=== PATIENT | male | born 1955 | race American Indian/Alaskan Native ===

== ENCOUNTER 2024-09-21 12:28 | Outpatient (CLI) | payer MEDICARE, SELFPAY ==
--- NOTE | ~2024-09-21 | XR_ITS ---
Clinical Indication: Smoking PA and lateral views of the chest: Comparison: None Findings: The lungs are clear, without evidence of focal consolidation or pleural effusion. Cardiome diastinal silhouette is within normal limits. Bones are intact. Large hiatal hernia present. Impression: Clear lungs. Extremely large hiatal hernia. Reviewed, dictated and finalized at location . Impression: Clear lungs. Extremely large hiatal hernia.
--- OUTSIDE RECORDS SUMMARY | 2024-09-21 12:34 | XMS_ITS | Clinical Summary ---
Author Organization [facility] Alana proctor [facility] Address [address] [place] [address] Care Team Providers Care Special Events Planner Name Role Phone Steve Bernard MD Primary Care Provider [phone] Allergies No known active allergies Medications amoxicillin (AMOXIL) 500 mg Tablet Take 1 Tablet by mouth 3 times daily. 06/05/2023 Active amLODIPine (NORVASC) 10 mg tablet Take 10 mg by mouth daily. 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 Family History Medical History Relation Name Comments No Known Problems Brother No Known Problems Child 1 No Known Problems Child 2 No Known Problems Child 3 No Known Problems Child 4 No Known Problems Child 5 Cancer Father No Known Problems Mother No Known Problems Sister 1 No Known Problems Sister 2 No Known Problems Sister 3 Relation Name Status Comments Brother Alive Child 1 Alive Child 2 Alive Child 3 Alive Child 4 Alive Child 5 Alive Father Mother Alive Sister 1 Alive Sister 2 Alive Sister 3 Alive Social History Tobacco Use Types Packs/Day Years Used Date Smoking Tobacco: Every Day Cigarettes 0.5 11.3 Started: 06/19/2013 Alcohol Use Standard Drinks/Week Comments Yes 0 (1 standard drink = 0.6 oz pur e alcohol) socially Sex and Gender Information Value Date Recorded Sex Assigned at Not on file Legal Sex Male 10:02 AM CDT Gender Identity Not on file Sexual Orientation Not on file Last Filed Vital Signs Vital Sign Reading Time Taken Comments Blood Pressure 147/95 06/20/2023 10:15 AM CDT Pulse 112 06/20/2023 10:15 AM CDT Temperature 36.7 C (98 F) 06/20/2023 10:10 AM CDT Respiratory Rate 19 06/20/2023 10:10 AM CDT Oxygen Saturation 95% 06/20/2023 10:10 AM CDT Inhaled Oxygen Concentration - - Weight 91.8 kg (202 lb 6.4 oz) 06/20/2023 10:10 AM CDT Height - - Body Mass Index - - Plan of Treatment Health Maintenance Due Date Last Done Comments DTAP/TDAP/TD VACCINES (1 - Tdap) 09/06/1974 PNEUMOCOCCAL VACCINE 50+ YEARS (1 of 2 - PCV) 09/06/18 75 COLORECTAL SCREENING 09/06/2000 Colorectal Cancer Screening 09/06/2000 FIT-DNA Q 3 years 09/06/2000 FIT/FOBT Q 1 year 09/06/2000 Flex Sig/CT Colonography Q 5 years 09/06/2000 ZOSTER VACCINE (1 of 2) 09/06/2005 INFLUENZA VACCINE (#1) 2024 RSV VACCINE (60+ or ) (1 - 1-dose 75+ series) 09/06/2030 Insurance MCR Care Teams Special Events Planner Relationship Specialty Start Date End Date Steve Bernard MD [address] [place] [phone] PCP - General Family Practice 06/20/23
--- OUTSIDE RECORDS SUMMARY | 2024-09-21 12:34 | XMS_ITS | Continuity of Care Document ---
Author Organization [facility] Address [address] [place] [address] Phone Care Team Providers Care Slope Tender Name Role Phone Unavailable Unavailable Unavailable Procedures Procedure Date Onsite Office Visit Onsite Office Visit Resin-3+ Posterior Limited Oral Evaluation Xlwjbxmbr-Eaqkwrfwhk-4gw Advance Directives Directive Yes / No Effective Date File Name No Information Encounters Encounter Description Practice Location Reason(s) For Visit Diagnoses Date Provider Providers Copied on Encounter [facility], [address], [place], [place], [id number], [place] tel:[phone] [facility] No Information No Information [facility], [address], [place], [place], [address], [place] tel:[phone] [facility] No Information 3 No Information Family History Family Member Type Diagnosis Age At Onset No Information Payers Payer name Insurance type Covered libertarian ID Authoriza tion(s) No Information Social History [...]
--- OUTSIDE RECORDS SUMMARY | 2024-09-21 12:34 | XMS_ITS | Clinical Summary ---
Author Organization [facility] Address [address] [place] [address] Care Team Providers Care Field Cashier Name Role Phone Steve Bernard MD Primary Care Provider [phone] Allergies No known active allergies Medications amLODIPine (NORVASC) 10 MG tablet Take 1 tablet (10 mg total) by mouth daily. Active Social History Tobacco Use Types Packs/Day Years Used Date Smoking Tobacco: Former Cigarettes Smokeless Tobacco: Never Tobacco Cessation:Counseling Given: Not Answered Comments:Quit 2023, smoked about 15 years , 1 PPD Alcohol Use Standard Drinks/Week Comments Yes 0 (1 standard drink = 0.6 oz pure alcohol) used to drink a couple cans of beer daily, but no longer Sex and Gender Information Value Date Recorded Sex Assigned at Male 05/27/2024 5:16 AM CDT Legal Sex Male 7:43 PM CDT Gender Identity Not on file Sexual Orientation Not on file Last Filed Vital Signs Vital Sign Reading Time Taken Comments Blood Pressure 113/78 05/27/2024 9:50 AM CDT Pulse 92 05/27/2024 9:50 AM CDT Temperature 36.2 C (97.2 F) 05/27/2024 9:50 AM CDT Respiratory Rate 16 05/27/2024 9:50 AM CDT Oxygen Saturation 97% 05/27/2024 9:50 AM CDT Inhaled Oxygen Concentration - - Weight 97.8 kg (215 lb 9.8 oz) 05/27/2024 6:10 A M CDT Height 182.9 cm (6') 05/27/2024 6:10 AM CDT Body Mass Index 29.24 05/27/2024 6:10 AM CDT Plan of Treatment Health Maintenance Due Date Last Done Comments Colorectal Cancer Screening Colonoscopy (10 Years) 1955 Hepatitis C 09/06/1973 DTaP, Tdap and Td Vaccines ( 1 - Tdap) 09/06/1974 Pneumococcal Vaccine: 50+ Ye ars (1 of 1 - PCV) 09/06/2005 Zoster Vaccines (1 of 2) 09/06/2005 AAA SCREENING 09/06/2020 Annual Medicare Wellness Visit 09/06/2020 COVID-19 Vaccine (1 - 2023-2 5 season) 2023 RSV Immunization or 60+ Years (1 - 1-dose 75+ series) 09/06/2030 Meningococcal B Vaccine Aged Out No l onger eligible based on patient's age to complete this topic Meningococcal Vaccine Aged Out No nola ye eligible based on patient's age to complete this topic RSV Immunizations Under 20 Months Aged Out No longer eligible based on patient's age to complete this topic Insurance [place] [address] [place] [address] Care Teams Field Cashier Relationship Specialty Start Date End Date Steve Bernard MD [address] [address] PCP - General FAMILY PRACTICE 05/27/24
== END 2024-09-21 12:29 | disposition home or self-care (01) ==
PROVIDERS: PCP Emergency Medicine; Visit Provider Emergency Medicine
DX: K44.9 Diaphragmatic hernia without obstruction or gangrene (principal); Z72.0 Tobacco use; Z13.820 Encounter for screening for osteoporosis
CPT/HCPCS: 71046

== ENCOUNTER 2024-10-05 10:32 | Outpatient (CLI) | payer MEDICARE, MEDICAID, SELFPAY ==
--- NOTE | ~2024-10-05 | DEXA_ITS ---
Bone Density Report Name: JENNY VELARDE Age: 69 Sex: Male Ethnicity: White Date of : 1955 Indication: height loss; Referring Provider: LUKE MOFFETT Study: Bone densitometry was performed. Exam Date: October 05, 2024 Accession number: [id number] Bone Density: Region BMD T-score Z-score Classification AP Spine(L1-L4) 0.949 -1.3 -0.4 Osteopenia Femoral Neck (Left) 0.639 -2.1 -1.0 Osteopenia Total Hip (Left) 0.824 -1.4 -0.8 Osteopenia Femoral Neck (Right) 0.650 -2.1 -0.9 Osteopenia Total Hip (Right) 0.842 -1.3 -0.6 Osteopenia Total Hip Mean 0.833 -1.4 -0.7 Osteopenia World Health Organization criteria for BMD impression classify patients as: Normal (T-score at or above -1.0), Osteopenia (T-score between -1.0 and -2.5), or Osteoporosis (T-score at or below -2.5). 10-year Fracture Risk(1): Major Osteoporotic Fracture 7.9% Hip Fracture 2.0% Reported Risk Factors: [place] (), Neck BMD=0.639, BMI=31.2 (1) FRAX(R) Version 3.08. Fracture probability calculated for an untreated patient. Fracture probability may be lower if the patient has received treatment. Clinical Information Provided by Patient: Patient maximum height was 72.0 Drinks caffeinated beverages Impression: The patient has low bone mass, based on the Left Femoral Neck T-score. The patient has an estimated ten-year risk of hip fracture of 2% and an estimated ten-year risk of major fracture of 7.9%, based on the WHO FRAX algorithm. Discussion: BONE DENSITY IS LOW AT ONE OR MORE SKELETAL SITES. This patient's lowest T-score is low at one or more skeletal sites. It meets the World Health Organization's (WHO) criteria for ?low bone mass? (T-score between -1.0 and -2.5). The patient's 10-year risk of fracture as calculated by FRAX is less than the threshold where pharmacological therapy is recommended by the National Osteoporosis Foundation (NOF). However, all treatment decisions require clinical judgment and consideration of individual patient factors, including patient preferences, comorbidities, previous drug use, risk factors not captured in the FRAX model (e.g., frailty, falls, vitamin D deficiency, increased bone turnover, interval significant decline in bone density) and possible under or overestimation of fracture risk by FRAX. The patient should follow a healthful lifestyle (good nutrition with adequate calcium and vitamin D, and appropriate weight-bearing exercise). Follow-Up: Consider repeating this study in 2 to 3 years to reassess this patient's status, or sooner if there is some new clinical indication. Reported by: ELLIOT on 10/05/2024 11:17:00 AM. Reviewed, dictated and finalized at location A.
--- OUTSIDE RECORDS SUMMARY | 2024-10-05 11:00 | XMS_ITS | Continuity of Care Document ---
Author Name [facility] Organization [facility] Care Team Providers Care Liquor Store Manager Name Role Phone [facility] Unavailable Unavailable Problems Combined list of problems from [facility] facilities. It does not include entries that were removed or entered in error. Problem Status Onset Date Problem Type Date of Resolution Comments Source Anemia * (ICD-9-CM 285.9) Active Condition [facility] Anemia FE Def Active Condition [facility] EMMY [facility] Benign essential hypertension Active Condition [facility] Cataracts Active Condition [facility] Lipoma Active Condition [facility] Other Malaise and Fatigue Active Condition [facility] Unspecified General Medical Examination (ICD-9-CM V70.9) Active Condition [facility] Social History Combined list of available smoking, tobacco, and other social history from [facility] facilities. Social History Type Response Date Comment Sourc e Tobacco smoking status NHIS [place]-TOBACCO USER EVERY DAY 02/04/2018 [facility] of [facility] 30 [facility] WAKEUP 02/04/2018 [facility] History of tobacco use TOB-DECLINES SMOK ING CESSATION REFERRAL 03/18/2006 [facility] Advance Directives List of completed, amended, or rescinded Advance Directives on record at [facility] facilities. An actual copy of the Directive is not included. Date Advance Directive Provider Source 03/22/2006 ADVANCE DIRECTIVE [facility]
--- OUTSIDE RECORDS SUMMARY | 2024-10-05 11:00 | XMS_ITS | Continuity of Care Document ---
Author Organization [facility] Address [address] [place] [address] Phone Care Team Providers Care Ferryboat Operator Helper Name Role Phone Unavailable Unavailable Unavailable Procedures Procedure Date Onsite Office Visit Onsite Office Visit Resin-3+ Posterior Limited Oral Evaluation Mbevkcdxt-Flzuupkqmo-2tf Advance Directives Directive Yes / No Effective Date File Name No Information Encounters Encounter Description Practice Location Reason(s) For Visit Diagnoses Date Provider Providers Copied on Encounter [facility], [address], [place], [place], [id number], [place] tel:[phone] [facility] No Information No Information [facility], [address], [place], [place], [address], [place] tel:[phone] [facility] No Information 3 No Information [...]
--- OUTSIDE RECORDS SUMMARY | 2024-10-05 11:00 | XMS_ITS | Clinical Summary ---
Author Organization [facility] Alana proctor [facility] Address [address] [place] [address] Care Team Providers Care Christian Counselor Name Role Phone Steve Bernard MD Primary Care Provider [phone] Allergies No known active allergies Medications amoxicillin [...] 75+ series) 09/06/2030 Insurance MCR Care Teams Christian Counselor Relationship Specialty Start Date End Date Steve Bernard MD [address] [place] [phone] PCP - General Family Practice 06/20/23
--- OUTSIDE RECORDS SUMMARY | 2024-10-05 11:00 | XMS_ITS | Clinical Summary ---
Author Organization [facility] Address [address] [place] [address] Care Team Providers Care Slater Apprentice Name Role Phone Steve Bernard MD Primary Care Provider [phone] Allergies No known active allergies Medications amLODIPine [...] age to complete this topic Insurance [place] [address] Care Teams Slater Apprentice Relationship Specialty Start Date End Date Steve Bernard MD [address] [address] PCP - General FAMILY PRACTICE 05/27/24
== END 2024-10-05 10:33 | disposition home or self-care (01) ==
PROVIDERS: PCP Emergency Medicine; Visit Provider Emergency Medicine
DX: M85.89 Other specified disorders of bone density and structure, multiple sites (principal); Z13.820 Encounter for screening for osteoporosis; F17.200 Nicotine dependence, unspecified, uncomplicated
CPT/HCPCS: 77080

== ENCOUNTER 2025-01-04 11:50 | Outpatient (CLI) | payer MEDICARE, MEDICAID, SELFPAY ==
--- OUTSIDE RECORDS SUMMARY | 2013-01-06 05:00 | XMS_ITS | Continuity of Care Document ---
Author Organization [facility] Address [address] [place] [address] Phone Care Team Providers Care Varnish Dipper Name Role Phone Unavailable Unavailable Unavailable Procedures Procedure Date Onsite Office Visit Onsite Office Visit Resin-3+ Posterior Limited Oral Evaluation Qmshmbfjk-Khiixlpxnh-2ul Advance Directives Directive Yes / No Effective Date File Name No Information Encounters Encounter Description Practice Location Reason(s) For Visit Diagnoses Date Provider Providers Copied on Encounter [facility], [address], [place], [place], [id number], [place] tel:[phone] [facility] No Information No Information [facility], [address], [place], [place], [id number], [place] tel:[phone] [facility] No Information 3 No Information Family History Family Member Type Diagnosis Age At Onset No Information Payers Payer name Insurance type Covered republican ID Authoriza tion(s) No Information Social History Type Description Quantity Date Captured Comments Sex Male Smoking Status No Information Chief Complaint And Reason For Visit No Information Reason For Referral Reason For Referral No Information History Of Present Illness Encounter Date Complaint History Of Prese nt Illness No Information Functional Status Date Functional Assessmen t No Information Instructions Date Instruction Additional Infor mation No Information Assessments Type Assessment Date No Information Patient Care Teams Name Effective Dates (start - stop) Status Members No Information
--- NOTE | ~2025-01-04 | US_ITS ---
EXAMINATION: US venous doppler [facility] DATE: 01/04/2025 12:59 INDICATION: Lower limb pain and swelling. TECHNIQUE: Grayscale ultrasound images without and with compression and Doppler ultrasound images of the bilateral lower extremity veins were obtained. COMPARISON: None. FINDINGS: The visualized portions of right common femoral vein, profunda (deep) femoral vein, femoral vein, popliteal vein, peroneal veins, posterior tibial veins, and greater saphenous vein outflow are patent. The visualized portions of left common femoral vein, profunda femoral vein, femoral vein, popliteal vein, peroneal veins, posterior tibial veins, and greater saphenous vein outflow are patent. IMPRESSION: 1. No deep venous thrombosis. Reviewed, dictated and finalized at location E.
--- NOTE | ~2025-01-04 | XR_ITS ---
EXAMINATION: XR foot RT min 3V DATE: 01/04/2025 12:41 INDICATION: Right foot pain TECHNIQUE: Dorsoplantar, two oblique and lateral views of the right foot were obtained. COMPARISON: None. FINDINGS: 40 degrees hallux valgus with moderate osteoarthritis at the first metatarsophalangeal joint. Old healed fracture deformity at the neck of the fifth metatarsal which is healed with 3 mm plantar/medial displacement. Bone alignment is otherwise normal. No acute fractures identified. Additional mild to moderate polyarticular osteoarthritis involving multiple tarsometatarsal and interphalangeal joints. There is increased lucency with sharply defined margins projecting over the cephalad aspect of the anterior process of the calcaneus suspicious for a large erosion. Small plantar calcaneal spur. Soft tissue swelling about the ankle. IMPRESSION: 1. Suggestion of a large erosion along the dorsal margin anterior process of the calcaneus of indeterminate etiology or significance. Consider further evaluation with contrast-enhanced either MRI or CT. 2. 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 3. Old healed fracture at the neck of the fifth metatarsal. Reviewed, dictated and finalized at location A. IMPRESSION: 1. Suggestion of a large erosion along the dorsal margin anterior process of th e calcaneus of indeterminate etiology or significance. Consider further evaluat ion with contrast-enhanced either MRI or CT. 2. 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 3. Old healed fracture at the neck of the fifth metatarsal.
--- OUTSIDE RECORDS SUMMARY | 2025-01-04 13:26 | XMS_ITS | Clinical Summary ---
Author Organization [facility] Address [address] [place] [address] Care Team Providers Care Account Assistant Name Role Phone Steve Bernard MD Primary Care Provider [phone] Allergies No known active allergies Medications amLODIPine [...] Wellness Visit 09/06/2020 COVID-19 Vaccine (1 - 2024-2 6 season) 2024 Influenza Adult (#1) 2024 RSV Immunization or 60+ Years (1 - 1-dose 75+ series) 09/06/2030 Hepatitis A Vaccines Aged Out No long er eligible based on patient's age to complete this topic Meningococcal B Vaccine Aged Out No l onger eligible based on patient's age to complete this topic Meningococcal Vaccine Aged Out No nola ye eligible based on patient's age to complete this topic RSV Immunizations Under 20 Months Aged Out No longer eligible based on patient's age to complete this topic Insurance MEDICAID [employer] [address] Care Teams Account Assistant Relationship Specialty Start Date End Date Steve Bernard MD [address] [place] [address] PCP - General FAMILY PRACTICE 05/27/24
--- OUTSIDE RECORDS SUMMARY | 2025-01-04 13:26 | XMS_ITS | Clinical Summary ---
Author Organization [facility] Alana proctor [facility] Address [address] [place] [place] [address] Care Team Providers Care Laser Set Up Operator Name Role Phone Steve Bernard MD Primary Care Provider [phone] Allergies No known active allergies Medications amoxicillin [...] Date Smoking Tobacco: Every Day Cigarettes 0.5 11.5 Started: 06/19/2013 Alcohol Use Standard Drinks/Week Comments [...] 75+ series) 09/06/2030 Insurance MCR Care Teams Laser Set Up Operator Relationship Specialty Start Date End Date Steve Bernard MD [address] [place] [phone] PCP - General Family Practice 06/20/23
[2025-01-04 13:44] LABS: Hematocrit 42.7 % (42.0-52.0); Hemoglobin 15.2 g/dL (14.0-18.0); Mean Corpuscular HGB Conc 35.6 g/dl (32-36); Mean Corpuscular Hemoglobin 31.1 pg (26-34); Mean Corpuscular Volume 87.3 fl (80-100); Platelet Count Result 245 k/mm3 (150-375); Red Blood Count 4.89 M/mm3 (4.6-6.20); White Blood Count 8.8 K/mm3 (4.5-10.0)
[2025-01-04 14:05] LABS: Alanine Aminotransferase 19 U/L (6-50); Albumin Level 4.1 g/dL (3.5-5.1); Alkaline Phosphatase 76 U/L (38-126); Anion Gap 5 mmol/L (4-12); Aspartate Amino Transferase 26 U/L (17-59); Bilirubin,Total 0.6 mg/dL (0.2-1.3); Blood Urea Nitrogen 10 mg/dL (9-20); Calcium 9.1 mg/dL (8.4-10.2); Carbon Dioxide 30 mmol/L (22-30); Chloride 102 mmol/L (98-107); Cholesterol 219 mg/dL (0-200); Estimated Glomerular Filt Rate > 60; Glucose 93 mg/dL (65-110); HDL Direct 42 mg/dL; Potassium 3.8 mmol/L (3.4-5.0); Sodium 137 mmol/L (137-145); Total Protein 6.9 g/dL (6.3-8.2); Triglycerides 140 mg/dL (<150); Uric Acid 5.7 mg/dL (3.5-8.5)
[2025-01-04 14:19] LABS: Free T4 Free Thyroxine 1.21 ng/dL (0.78-2.19)
[2025-01-04 14:41] LABS: Thyroid Stimulating Hormone 2.170 uIU/mL (0.465-4.680)
[2025-01-04 17:25] LABS: MALB Creatinine Ratio < 11.6 mg/g (0-30)
[2025-01-06 15:09] LABS: Free Testosterone (Direct) 3.7 pg/mL (6.6-18.1)
== END 2025-01-04 11:51 | disposition home or self-care (01) ==
PROVIDERS: PCP Emergency Medicine; Visit Provider Emergency Medicine
DX: Z00.00 Encounter for general adult medical examination without abnormal findings (principal); E78.5 Hyperlipidemia, unspecified; I10 Essential (primary) hypertension; Z72.0 Tobacco use; R60.0 Localized edema; R60.9 Edema, unspecified
CPT/HCPCS: 36415; 73630; 80053; 80061; 82043; 82306; 84402; 84403; 84439; 84443; 84550; 85027; 93970